=== PATIENT | female | born 1970 | race Caucasian/White ===

== ENCOUNTER → 2018-02-28 17:50 | Outpatient (CLI) | payer OTHER, SELFPAY ==
--- NOTE | 2018-02-28 18:15 | MRI_ITS ---
STUDY: MRI BRAIN WITH AND WITHOUT CONTRAST REASON FOR EXAM: Female, 47 years old. New Onset of severe headaches. TECHNIQUE: Standardized multiplanar fat and water weighted pulse sequences were obtained. 5 ml of Gadavist contrast material was administered intravenously for the contrast portion of the examination. COMPARISON: None. FINDINGS: No evidence for shift of midline structures, mass effect or compression of the ventricles noted. No acute intra-articular extra-axial hemorrhage is seen. No abnormal intracranial fluid collections identified. No evidence for restricted diffusion to suggest acute or subacute ischemic insult. No evidence for cerebellar tonsillar herniation. Pituitary stalk and gland are within normal limits. Normal appearance of the corpus callosum. The ventricular system appears unremarkable. The basal cisterns are patent. Skull base vascular flow voids are patent. Visualized orbital contents appear unremarkable. No evidence for intracranial enhancing mass Extraocular muscles appear symmetric. IMPRESSION: No evidence for acute or subacute ischemic insult. No evidence for intracranial enhancing mass. No evidence for acute intracranial hemorrhage. Electronically Signed: Ramin Anne, at 21:27 EDT Tel , Service support , MRI/Brain W/WO Contrast
== END ==
PROVIDERS: Family Provider Legal Medicine; PCP Legal Medicine; Visit Provider Legal Medicine
DX: G44.52 New daily persistent headache (NDPH) (principal)
CPT/HCPCS: 70553; A9585

== ENCOUNTER → 2018-06-06 08:32 | Outpatient (CLI) | payer OTHER, SELFPAY ==
--- NOTE | 2018-06-06 08:34 | BI_ITS ---
MAMMOGRAPHY - BILATERAL SCREENING REASON FOR EXAM: Female, 48 years old. Routine annual screening examination. PERTINENT HISTORY: Non-contributory. TECHNIQUE: Digital bilateral breast wendy (3D mammographic acquisition) in the CC and MLO projections. 2-D mediolateral oblique (MLO) and craniocaudad (CC) views of both breasts were obtained. CAD: Full Field Digital Mammography with Computer Added Detection was performed. COMPARISON: Comparison is made with prior outside examination dated January 20, 2013. FINDINGS: Breast Composition: The breasts are extremely dense, which lowers the sensitivity of mammography. There are no dominant masses or suspicious calcifications. No other significant abnormalities are identified. There has been no significant change since the prior study. BI/SCREENING MAMM (CAD), BILAT IMPRESSION: Stable bilateral screening mammogram. Yearly follow-up mammogram recommended. (A) ASSESSMENT CATEGORY: BIRADS Category 1: Negative. A letter regarding these results will be sent to the patient by the facility within 30 days. Approximately 10% of breast cancers are not detected by mammography. A normal mammogram should not delay biopsy of a clinically suspicious abnormality. [id number] Electronically Signed: Yordan Lara MD at 14:17 EDT Tel [phone], Service support ,
== END ==
PROVIDERS: Family Provider Legal Medicine; PCP Legal Medicine; Visit Provider Legal Medicine
DX: Z12.31 Encounter for screening mammogram for malignant neoplasm of breast (principal)
CPT/HCPCS: 77063; 77067

== ENCOUNTER → 2018-07-10 08:56 | Outpatient (CLI) | payer OTHER, SELFPAY ==
--- NOTE | 2018-07-10 09:13 | BD_ITS ---
STUDY: DUAL ENERGY X-RAY ABSORPTIOMETRY / DXA REASON FOR EXAM: Female, 48 years old. The patient is perimenopausal. Loss of height. History of celiac disease. TECHNIQUE: Bone Mineral Density (BMD) measurements of lumbar spine and bilateral hips were obtained. COMPARISON: None. FINDINGS: Lumbar Spine (L1-L4): g/cm2 (1.112) / T-score (-0.6) / Z-score (-0.4) Findings are suggestive of normal bone density with a low fracture risk. Left Femur Total: g/cm2 (0.933) / T-score (-0.6) / Z-score (-0.2) Left Femoral Neck: g/cm2 (0.933) / T-score (-0.8) / Z-score (-0.1) Right Femur Total: g/cm2 (0.948) / T-score (-0.5) / Z-score (-0.1) Right Femoral Neck: g/cm2 (0.936) / T-score (-0.7) / Z-score (-0.1) BD/Dexa Bone Density Study IMPRESSION: The patient is considered normal as outlined below according to World Mike Organization (WHO) criteria with a low fracture risk. Reference Information: The T-score is the number of standard deviations above or below the standard which is normal for young adults at their peak bone mineral density. The World Health Organization (WHO) interprets the T-scores as follows: Above -1 Normal bone density Between -1 and -2.5 Osteopenia Equal to / or below -2.5 Osteoporosis As a practical clinical guideline, osteopenia may be graded as follows: Mild -1 through -1.5 Moderate -1.6 through -2.0 Severe -2.1 through -2.4 The Z-score is the number of standard deviations above or below age-matched controls. A Z-score of less than -1.5 would be considered abnormal. References: 1. NIH Osteoporosis and Related Bone Diseases http://www.osteo.org 2. International Society for Clinical Densitometry http://www.iscd.org 3. National Osteoporosis Foundation http://www.nof.org Electronically Signed: Yordan Lara MD at 8:27 EST Tel [phone], Service support ,
== END ==
PROVIDERS: Family Provider Legal Medicine; PCP Legal Medicine; Referring Provider Legal Medicine; Visit Provider Legal Medicine
DX: Z78.0 Asymptomatic menopausal state (principal)
CPT/HCPCS: 77080

== ENCOUNTER → 2020-08-04 09:44 | Outpatient (CLI) | payer OTHER, SELFPAY ==
--- NOTE | 2020-08-04 09:46 | US_ITS ---
STUDY: ULTRASOUND BREAST - RIGHT REASON FOR EXAM: Female, 50 years old. Palpable lump in the right breast. TECHNIQUE: Axial and longitudinal images of the RIGHT breast were performed with a high resolution ultrasound transducer. # OF IMAGES: 123 COMPARISON: Comparison is made with prior mammogram done earlier in the day. FINDINGS: RIGHT Breast: There is a 1 cm x 0.8 cm x 0.6 cm well-defined hypoechoic nodule at the 5 o''clock position of the breast at 4 cm from the nipple. A biopsy is recommended. IMPRESSION: 1 cm x 0.8 cm x 0.6 cm well-defined hypoechoic nodule at the 5 o''clock position of the breast at 4 cm from the nipple. A biopsy recommended. ASSESSMENT CATEGORY: BIRADS Category 4: Suspicious - Biopsy Should Be Considered. A letter regarding these results will be sent to the patient by the facility within 30 days. Electronically Signed: Yordan Lara, at 12:27 EST , Service support , STUDY: ULTRASOUND BREAST - LEFT REASON FOR EXAM: Female, 50 years old. Palpable lump left breast. TECHNIQUE: Axial and longitudinal images of the LEFT breast were performed with a high resolution ultrasound transducer. # OF IMAGES: 123 COMPARISON: Comparison is made with prior mammogram done earlier today. FINDINGS: LEFT Breast: The entire breast was examined by ultrasound. There is dense fibroglandular tissue. No sonographic abnormality is seen. US/Breast Complete Unilateral IMPRESSION: No sonographic abnormality is seen. ASSESSMENT CATEGORY: BIRADS Category 1: Negative. A letter regarding these results will be sent to the patient by the facility within 30 days. Electronically Signed: Yordan Lara, at 12:27 EST , Service support ,
--- NOTE | 2020-08-04 09:46 | BI_ITS ---
MAMMOGRAPHY - BILATERAL DIAGNOSTIC REASON FOR EXAM: Female, 50 years old. Bilateral lumpy breasts. PERTINENT HISTORY: Non-contributory. TECHNIQUE: Digital bilateral breast wendy (3D mammographic acquisition) in the CC and MLO projections. 2-D mediolateral oblique (MLO) and craniocaudad (CC) views of both breasts were obtained. CAD: Full Field Digital Mammography with Computer Added Detection was performed. COMPARISON: Comparison is made with prior study dated 06/06/2018. FINDINGS: Breast Composition: The breasts are extremely dense, which lowers the sensitivity of mammography. There are no dominant masses or suspicious calcifications. No other significant abnormalities are identified. There has been no significant change since the prior study. BI/DIAG MAMM W/CAD, BILAT IMPRESSION: Stable bilateral diagnostic mammogram. The patient''s history of bilateral lumpy breasts, correlation with ultrasound is recommended. ASSESSMENT CATEGORY: BIRADS Category 0: Incomplete. Need additional imaging evaluation. A letter regarding these results will be sent to the patient by the facility within 30 days. Approximately 10% of breast cancers are not detected by mammography. A normal mammogram should not delay biopsy of a clinically suspicious abnormality. Electronically Signed: Yordan Lara, at 10:52 EST , Service support ,
== END ==
PROVIDERS: PCP Legal Medicine; Referring Provider Legal Medicine; Visit Provider Legal Medicine
DX: R92.2 Inconclusive mammogram (principal)
CPT/HCPCS: 76641; 77062; 77066; G0279

== ENCOUNTER → 2020-08-17 13:25 | Outpatient (CLI) | payer OTHER, SELFPAY ==
--- NOTE | 2020-08-17 | BRBX_PTH ---
PATIENT: DAMARI LUONG LOC: [facility] U#:[id number] AGE/SX: 55/F ROOM: RE08/17/[address]: Dr. Hillary Carcamo MD : 1970 BED: DIS: SPEC #: [id number] RECD: 08/17/20 14:25 STATUS: HAY VICENTE #: [id number] SCOUT: 08/17/20 00:[address]: Hillary Carcamo DEPT: SURGICAL PATHOLOGY RECD BY: Catrina Manzano ENTERED: 08/18/20 07:19 SP TYPE: BREAST BX OTHR DR: Dr. Mandeep Kat MD Tissues: Right breast, NOS Procedures: Surgery Specimen Level IV HEADER OPERATION: Ultrasound-guided right breast biopsy PRE-OP DIAGNOSIS: Right breast mass TISSUE SUBMITTED: Right breast 5 o'clock +4 ISCHEMIC TIME: 1 minute FIXATION TIME: 29 hours MICROSCOPIC DIAGNOSIS Right breast, ultrasound-guided core biopsy: Mild fibrocystic change. Focal intraductal hyperplasia without atypia. Focal Banal microcalcifications. No evidence of malignancy. AM:tejas 08/19/20 MICROSCOPIC DESCRIPTION Slides are reviewed. GROSS DESCRIPTION Received in fixative is one container labeled with the patient's name and designated right breast biopsy. The specimen consists of multiple irregular and elongated fragments of ochoa-yellow soft tissue that in aggregate measure 2.5 x 1 x 0.1 cm. The specimen is totally submitted in one cassette. / AM:tejas 08/18/20 TC:5 CPT: 24761
--- NOTE | 2020-08-17 13:30 | US_ITS ---
ULTRASOUND GUIDED CORE BIOPSY REASON FOR EXAM: Female, 50 years old. ABN RT US PERTINENT HISTORY: Right breast mass at 5 o''clock, 4 cm from the nipple COMPARISON: None. The patient tolerated the entire procedure without immediate complication and was discharged from the breast imaging department in good condition. US/US Breast Biopsy 1st Lesion IMPRESSION: Ultrasound guided core biopsy of a mass in the RIGHT breast at 5 o''clock, 4 cm from the nipple. without complication. Electronically Signed: Keena Bauman, at 14:59 EST Tel , Service support ,
--- NOTE | 2020-08-17 14:07 | BI_ITS ---
MAMMOGRAPHY - UNILATERAL DIAGNOSTIC: RIGHT BREAST REASON FOR EXAM: Female, 50 years old. Ultrasound guided right breast biopsy. PERTINENT HISTORY: 1 cm x 0.8 cm x 0.6 cm hypoechoic nodule at the 5 o''clock position of the right breast. TECHNIQUE: Mediolateral oblique and craniocaudad views of the right breast were obtained. CAD: Full Field Digital Mammography with Computer Added Detection was performed. COMPARISON: Comparison is made with prior mammogram dated 08/04/2020. FINDINGS: Breast Composition: The breasts are extremely dense, which lowers the sensitivity of mammography. A tissue clip marker is seen in the slightly inferior medial aspect of the right breast. No other significant abnormalities are identified. BI/DIAG MAMM W/CAD, UNILAT IMPRESSION: Status post right breast biopsy with the tissue marker placed. ASSESSMENT CATEGORY: BIRADS Category 2: Benign. A letter regarding these results will be sent to the patient by the facility within 30 days. Approximately 10% of breast cancers are not detected by mammography. A normal mammogram should not delay biopsy of a clinically suspicious abnormality. Electronically Signed: Yordan Lara, at 9:12 EST , Service support ,
--- NOTE | 2020-08-17 15:31 | PCM.OPRPT ---
Report of Operation Date of Procedure: 08/17/20 Pre-Operative Diagnosis: abnormal ultrasound of right breast Post-Operative Diagnosis: same Surgery/Procedure Performed:: US guided right breast needle core biopsy Description of Surgical Findings:: hypoechoic lesion at 5:00, 4 cm from nipple, probable fibroadenoma Type of Anesthesia:: Local - 1% xylocaine Specimen's removed: right breast tissue Estimated Blood Loss (mL): minimal Fluids Replaced: none Description of Procedure: After informed consent was given, the patient was brought into the ultrasound suite. Appropriate time out protocol was followed. The patient was placed in the supine position on the examination bed. The ultrasound machine was used for real time imaging. The right breast was then prepped with sterile skin preparation. The lesion was identified using the ultrasound transducer. The transducer was held in the transverse position. It was noted to be at the 5:00 position - 4 cm from the nipple. It was about 1 cm in diameter. The skin at the site where the needle core biopsy site would be inserted was cleansed with betadyne skin preparation. The skin and subcutaneous tissues was infiltrated with 1% xylocaine - 9 ml was used. A small skin william was made with an 11 blade scalpel medial to the lesion. The Mammotome biopsy device was then directed to just beneath the lesion using ultrasound guidance. Several core samples of tissue were then obtained. A marker clip was then placed at the biopsied site. Hemostasis was achieved by pressure. Steristrips were applied to the skin incision site and an Opsite was applied. The patient tolerated the procedure well and was discharged from the Breast Biopsy suite in good condition. - Complications none noted
== END ==
PROVIDERS: PCP Legal Medicine; Referring Provider Surgery; Visit Provider Surgery
DX: N60.11 Diffuse cystic mastopathy of right breast (principal); R92.0 Mammographic microcalcification found on diagnostic imaging of breast
CPT/HCPCS: 19083; 77065; 88305

== ENCOUNTER 2021-09-30 07:41 | Outpatient (CLI) | payer BC, SELFPAY ==
--- NOTE | 2021-09-30 08:16 | BI_ITS ---
MAMMOGRAPHY - BILATERAL SCREENING REASON FOR EXAM: Female, 51 years old. Routine annual screening examination. PERTINENT HISTORY: Non-contributory. TECHNIQUE: Digital bilateral breast yina (3D mammographic acquisition) in the CC and MLO projections. 2-D mediolateral oblique (MLO) and craniocaudad (CC) views of both breasts were obtained. CAD: Full Field Digital Mammography with Computer Added Detection was performed. COMPARISON: Comparison is made with prior study dated 08/04/2020 and 06/06/2018. FINDINGS: Breast Composition: The breasts are extremely dense, which lowers the sensitivity of mammography. There are no dominant masses or suspicious calcifications. No other significant abnormalities are identified. There has been no significant change since the prior study. BI/SCRN MAMM (CAD)W/YINA BILAT IMPRESSION: Stable bilateral screening mammogram. Yearly follow-up mammogram recommended. (A) ASSESSMENT CATEGORY: BIRADS Category 1: Negative. A letter regarding these results will be sent to the patient by the facility within 30 days. Approximately 10% of breast cancers are not detected by mammography. A normal mammogram should not delay biopsy of a clinically suspicious abnormality. [id number] Electronically Signed: Yordan Lara MD at 10:31 EST ,
== END 2021-09-30 23:59 | disposition home or self-care (01) ==
LOC: OPBI 08:15
PROVIDERS: PCP Legal Medicine; Referring Provider Legal Medicine; Visit Provider Legal Medicine
DX: Z12.31 Encounter for screening mammogram for malignant neoplasm of breast (principal)
CPT/HCPCS: 77063; 77067

== ENCOUNTER 2021-10-18 08:59 | Outpatient (CLI) | payer BC, SELFPAY ==
--- NOTE | 2021-10-18 09:07 | US_ITS ---
STUDY: ULTRASOUND BREAST - BILATERAL REASON FOR EXAM: Female, 51 years old. Dense breasts. TECHNIQUE: Axial and longitudinal images of the BILATERAL breast were performed with a high resolution ultrasound transducer. # OF IMAGES: 82 COMPARISON: Comparison is made with prior mammogram dated September 302021 prior ultrasound of the right breast dated 08/04/2020. FINDINGS: BILATERAL Breast: Dense breasts are seen bilaterally. There is a 6 mm x 4 mm x 2 mm hypoechoic solid nodule at the 5 o''clock position breast at 4 cm from the nipple. A tissue clip marker is seen within it from prior biopsy. Imaging of the entire left breast was obtained. No sonographic abnormality is seen. US/Breast Complete Bilateral IMPRESSION: Stable 6 mm x 4 mm x 2 mm hypoechoic solid nodule at the 5 o''clock position of the breast at 4 cm from the nipple. A tissue clip marker is seen within it. ASSESSMENT CATEGORY: BIRADS Category 2: Benign. A letter regarding these results will be sent to the patient by the facility within 30 days. Electronically Signed: Yordan Lara MD at 14:53 EST ,
== END 2021-10-18 23:59 | disposition home or self-care (01) ==
PROVIDERS: PCP Legal Medicine; Referring Provider Legal Medicine; Visit Provider Legal Medicine
DX: R92.2 Inconclusive mammogram (principal)
CPT/HCPCS: 76641

== ENCOUNTER → 2024-04-02 | Outpatient (CLI) | payer BC, SELFPAY ==
--- NOTE | 2024-04-02 08:15 | BI_ITS ---
MAMMOGRAPHY - BILATERAL SCREENING REASON FOR EXAM: Female, 53 years old. Routine annual screening examination. PERTINENT HISTORY: Non-contributory. History of breast cysts. TECHNIQUE: Digital bilateral breast yina (3D mammographic acquisition) in the CC and MLO projections. 2-D mediolateral oblique (MLO) and craniocaudad (CC) views of both breasts were obtained. CAD: Full Field Digital Mammography with Computer Added Detection was performed. COMPARISON: Comparison is made with prior study July 30, 2022 and August 17, 2020. FINDINGS: Breast Composition: The breasts are extremely dense, which lowers the sensitivity of mammography. There are no dominant masses or suspicious calcifications. No other significant abnormalities are identified. There has been no significant change since the prior study. BI/SCRN MAMM (CAD)W/YINA BILAT IMPRESSION: Stable bilateral screening mammogram. Yearly follow-up mammogram recommended. (A) ASSESSMENT CATEGORY: BIRADS Category 1: Negative. A letter regarding these results will be sent to the patient by the facility within 30 days. Approximately 10% of breast cancers are not detected by mammography. A normal mammogram should not delay biopsy of a clinically suspicious abnormality. [id number] Electronically Signed: Yordan Lara MD at 14:35 EDT ,
== END | disposition home or self-care (01) ==
LOC: OPBI 08:13
PROVIDERS: PCP Legal Medicine; Referring Provider Legal Medicine; Visit Provider Legal Medicine
DX: Z12.31 Encounter for screening mammogram for malignant neoplasm of breast (principal)
CPT/HCPCS: 77063; 77067

== ENCOUNTER → 2025-03-20 | Outpatient (CLI) | payer BC, SELFPAY ==
--- NOTE | 2025-03-20 10:30 | MRI_ITS ---
PROCEDURE: BRAIN W/WO CONTRAST 03/20/2025 REASON FOR EXAM: GAIT ABNORMALITY, VERTIGO. Headaches. TECHNIQUE: BRAIN W/WO CONTRAST Multiplanar and multisequence images were obtained. CONTRAST: Clariscan VOLUME: 10 mL intravenous. COMPARISON: None. FINDINGS: Brain: No intracranial mass or mass effect is seen. No extra-axial fluid collection is noted. No orbital pathology is seen. Bilateral internal auditory canals appear symmetric and within the normal range. Diffusion: Diffusion-weighted images demonstrate no area of restricted diffusion. Ventricles: Normal. Sinuses: Essentially clear. Mastoids: Clear. Other: Following intravenous contrast administration, no area of abnormal enhancement is seen. MRI/Brain W/WO Contrast IMPRESSION: No intracranial abnormality is identified Reading Location: [place] [id number]
== END | disposition home or self-care (01) ==
LOC: MRI 10:27
PROVIDERS: PCP Legal Medicine; Referring Provider Legal Medicine; Visit Provider Legal Medicine
DX: R26.9 Unspecified abnormalities of gait and mobility (principal); R42 Dizziness and giddiness
CPT/HCPCS: 70553; A9575

== ENCOUNTER → 2025-08-11 | Outpatient (CLI) | payer BC, SELFPAY ==
--- NOTE | 2025-08-11 09:32 | BI_ITS ---
EXAM: SCRN MAMM (CAD)W/YINA BILAT DATE: 08/11/2025 CLINICAL HISTORY: F, Age 55 y/o , SCREENING TECHNIQUE: Procedure Code: [id number] Modality: MG Procedure: SCRN MAMM (CAD)W/YINA BILAT COMPARISON: Prior exam(s) were compared FINDINGS: TISSUE DENSITY: The breasts are heterogeneously dense, which may obscure small masses. Bilateral Breast Mammographic Findings: No significant masses, calcifications or other abnormalities are identified. BI/SCRN MAMM (CAD)W/YINA BILAT IMPRESSION: No mammographic evidence of malignancy. OVERALL FINAL ASSESSMENT BI-RADS 1: NEGATIVE. RECOMMENDATION: Routine annual follow-up in 1 Year Additional Recommendation none A letter with findings and recommendations will be mailed to the patient. Reading Location: [id number]
== END | disposition home or self-care (01) ==
LOC: OPBI 09:29
PROVIDERS: PCP Legal Medicine; Referring Provider Legal Medicine; Visit Provider Legal Medicine
DX: Z12.31 Encounter for screening mammogram for malignant neoplasm of breast (principal)
CPT/HCPCS: 77063; 77067